=== PATIENT | male | born 1970 | race Two or more races ===

== ENCOUNTER 2025-03-26 13:25 | Emergency (ER) | payer OTHER ==
[~2025-03-26] VITALS: Ht 175.3 cm; Wt 102.0 kg
[2025-03-26 13:46] VITALS: BP 135/92; PULSE 78; RESP 16; TEMP 97.8; O2SAT 97
--- NOTE | 2025-03-26 14:00 | ED.PDOC ---
History of Present Illness HPI Comments This is a 54-year-old male with past medical history of hypertension, CVA with right-sided residual weakness presented to the ED from [facility] via [facility] with a chief complaint of intermittent nose bleeding, once or twice a day for last 1 month prior to this visit. The patient stated that he started having nose bleeding since last 1 month, mostly in the nighttime, stopped by putting pressure over the nose, but this time the bleeding did not stop that prompted this visit. He denies fever, chills, flu-like symptoms, chest pain, shortness of breath, abdominal pain, altered bowel habit, dysuria, hematuria. Chief Complaint: Nose Bleed Time Seen by MD: 13:36 Allergies: Coded Allergies: NO KNOWN ALLERGIES (Unverified , 03/26/25) Information Source: Patient Mode of Arrival: EMS Severity: Mild Timing: Months Duration: Since onset Prehospital treatment: None Past Medical History PAST MEDICAL HISTORY: CVA, HTN Surgical History: Appendectomy Family History Family History: Reviewed,noncontributory to illness Social History Smoker: Cigarettes, Less Than 1 Pack/Day Alcohol: Occasionally Drugs: Marijuana Lives In: Assisted Care Constitutional: denies: chills, diaphoresis, fatigue, fever, malaise, sweats, weakness, others EENTM: reports: nose bleeding; denies: blurred vision, double vision, ear bleeding, ear discharge, ear drainage, ear pain, ear ringing, eye pain, eye redness, hearing loss, mouth pain, mouth swelling, nasal discharge, nose congestion, nose pain, photophobia, tearing, throat pain, throat swelling, voice changes, others Respiratory: denies: cough, hemoptysis, orthopnea, SOB at rest, shortness of breath, SOB with excertion, stridor, wheezing, others Cardiovascular: denies: chest pain, dizzy spells, diaphoresis, Dyspnea on exertion, edema, irregular heart beat, left arm pain, lightheadedness, palpitations, PND, syncope, others Gastrointestinal: denies: abdomen distended, abdominal pain, blood streaked bowels, constipated, diarrhea, dysphagia, difficulty swallowing, hematemesis, melena, nausea, poor appetite, poor fluid intake, rectal bleeding, rectal pain, vomiting, others Neurological: reports: right sided weakness, speech problems; denies: dizziness, fainting, headache, left sided numbness, left sided weakness, numbness, paresthesia, pre-existing deficit, right sided numbness, seizure, tingling, tremors, weakness, others Musculoskeletal: denies: back pain, gout, joint pain, joint swelling, muscle pain, muscle stiffness, neck pain, others Integumetry: denies: bruises, change in color, change in hair/nails, dryness, laceration, lesions, lumps, rash, wounds, others Allergic/Immunocompromised: denies: Difficulty Healing, Frequent Infections, Hives, Itching, others Hematologic/Lymphatic: denies: anemia, blood clots, easy bleeding, easy bruising, swollen glands, others Endocrine: denies: excessive hunger, excessive sweating, excessive thirst, excessive urination, flushing, intolerance to cold, intolerance to heat, unexplained weight gain, unexplained weight loss, others Psychiatric: denies: anxiety, bipolar disorder, depression, hopeless, panic disorder, schizophrenia, sleepless, suicidal, others Physical Exam General Appearance: No Apparent Distress, Normal HEENT: Other (Dry hemostatic crust noted bilaterally in both nasal cavities) Neck: Full Range of Motion, Non-Tender, Normal, Normal Inspection Respiratory: Chest Non-Tender, Lungs Clear, No Accessory Muscle Use, No Respiratory Distress, Normal Breath Sounds Cardiovascular: No Edema, No JVD, No Murmur, No Gallop, Normal Peripheral Pulses, Regular Rate/Rhythm Breast Exam: Deferred Gastrointestinal: No Organomegaly, Non Tender, No Pulsatile Mass, Normal Bowel Sounds, Soft Genitalia: Deferred Pelvic: Deferred Rectal: Deferred Extremities: No calf tenderness, Normal capillary refill, Normal inspection, Normal range of motion, Non-tender, No pedal edema Neurologic: machine folder II-XII nml as Tested, Motor Weakness, Normal Mood, Speech Problem Cerebellar Function: NOT DONE Reflexes: NOT DONE Skin: Dry, Normal Color, Warm Peripheral Pulses: 2+ carotid (R), 2+ carotid (L), 2+ femoral (R), 2+ femoral (L), 2+ dorsalis pedis (R), 2+ dorsalis pedis (L), 2+ Radial (R), 2+ Radial (L), 2+ Brachial (R), 2+ Brachial (L) Lymphatic: NOT DONE Was a procedure done? Was a procedure done?: No Differential Dx Considerations may include: Epistaxis, nose picking, nasal foreign body, viral infection, thrombocytopenia X-Ray, Labs, Meds, VS Vital Signs Date Time Temp Pulse Resp B/P (MAP) Pulse Ox O2 Delivery O2 Flow Rate FiO2 03/26/25 13:46 97.8 78 16 135/92 97 97.8 Lab Test 03/26/25 15:42 Range/Units White Blood Count 5.9 4.4-10.8 10^3/uL Red Blood Count 4.08 L 4.5-5.90 10^6/uL Hemoglobin 12.8 L 13.5-17.5 g/dL Hematocrit 37.3 L 41.0-53.0 % Mean Corpuscular Volume 91.4 80.0-100.0 fL Mean Corpuscular Hemoglobin 31.3 28.0-32.0 pg Mean Corpuscular Hemoglobin Concent 34.2 32.0-36.0 g/dL Red Cell Distribution Width 15.7 H 11.8-14.3 % Platelet Count 216 140-450 10^3/uL Mean Platelet Volume 7.8 6.9-10.8 fL Neutrophils (%) (Auto) 54.2 37.0-80.0 % Lymphocytes (%) (Auto) 37.4 10.0-50.0 % Monocytes (%) (Auto) 7.8 0.0-12.0 % Eosinophils (%) (Auto) 0.4 0.0-7.0 % Basophils (%) (Auto) 0.2 0.0-2.0 % Neutrophils # (Auto) 3.2 1.6-8.6 10 ^3/uL Lymphocytes # (Auto) 2.2 0.4-5.4 10 ^3/uL Monocytes # (Auto) 0.5 0-1.3 10 ^3/uL Eosinophils # (Auto) 0 0-0.8 10 ^3/uL Basophils # (Auto) 0 0-0.2 10 ^3/uL Nucleated Red Blood Cells 0.2 % Prothrombin Time 10.5 9.3-11.8 sec Prothrombin Time INR 0.99 0.9-1.15 Activated Partial Thromboplast Time 28.4 24.5-34.5 SEC X-Ray, Labs, Meds, VS Comment CBC and coagulation studies are unremarkable Time of 1ST Reevaluation: 16:30 Reevaluation 1ST: Unchanged Patient Education/Counseling: Diagnosis, Treatment Family Education/Counseling: No Family Present Comments This is a 54-year-old male presented to the ER from [facility] with a complaint of intermittent nosebleed once or twice a day since last 1 month and resolved spontaneously by putting pressure over the nose. At the ER no active nasal bleeding, dry hemostatic crust present bilaterally CBC and coagulation studies are unremarkable Epistaxis most likely due to nose picking. Advised the patient to avoid nose picking or putting any foreign body in the nose SEPSIS Sepsis Screen Vital Signs Date Time Temp Pulse Resp B/P (MAP) Pulse Ox O2 Delivery O2 Flow Rate FiO2 03/26/25 13:46 97.8 78 16 135/92 97 97.8 Laboratory Tests Test 03/26/25 15:42 White Blood Count 5.9 10^3/uL (4.4-10.8) Departure 1 Departure Time of Disposition: 17:07 Impression: Primary Impression: Epistaxis Disposition: 01 HOME / SELF CARE / HOMELESS Condition: Fair Critical Care Note Critical Care Time?: No Stability Stability form required: JOE Galvin RESIDENT Mar 26, 2025 13:59
[2025-03-26 16:15] LABS: Hematocrit 37.3 % (41.0-53.0); Hemoglobin 12.8 g/dL (13.5-17.5); Mean Corpuscular Hemoglobin 31.3 pg (28.0-32.0); Mean Corpuscular Volume 91.4 fL (80.0-100.0); Nucleated Red Blood Cells % 0.2 %
[2025-03-26 16:34] LABS: INR 0.99 (0.9-1.15); Partial Thromboplastin Time 28.4 SEC (24.5-34.5); Prothrombin Time 10.5 sec (9.3-11.8)
== END 2025-03-26 18:29 | disposition home or self-care (01) ==
LOC: EDBD 13:25 → ER 13:25
DX: R04.0 Epistaxis (principal); I10 Essential (primary) hypertension; F17.210 Nicotine dependence, cigarettes, uncomplicated; Z90.49 Acquired absence of other specified parts of digestive tract
CPT/HCPCS: 36415; 85025; 85610; 85730

== ENCOUNTER 2025-06-18 08:17 | Emergency (ER) | payer OTHER ==
[~2025-06-18] VITALS: Ht 177.8 cm; Wt 118.0 kg
[2025-06-18 08:37] VITALS: TEMP 98.9
[2025-06-18 08:39] VITALS: PULSE 106; RESP 24; O2SAT 95
[2025-06-18 09:50] LABS: Hematocrit 38.1 % (41.0-53.0); Hemoglobin 12.9 g/dL (13.5-17.5); Mean Corpuscular Hemoglobin 30.8 pg (28.0-32.0); Mean Corpuscular Volume 90.7 fL (80.0-100.0); Nucleated Red Blood Cells % 0.0 %
[2025-06-18 09:59] LABS: Chloride 106 mmol/L (98-107); Sodium 140 mmol/L (136-145)
[2025-06-18 10:00] LABS: Anion Gap 9 (5-15); Carbon Dioxide 25 mmol/L (20-31)
[2025-06-18 10:01] LABS: Calcium 8.9 mg/dL (8.7-10.4)
[2025-06-18 10:04] LABS: Potassium 3.3 mmol/L (3.5-5.1)
[2025-06-18 10:06] LABS: BUN/Creatinine Ratio 10.0 (10.0-20.0); Blood Urea Nitrogen 12 mg/dL (9-23)
[2025-06-18 10:07] LABS: Glucose 120 mg/dL (74-106)
--- NOTE | 2025-06-18 10:07 | DVH ---
EXAM: XY CHEST PORTABLE Indication: cp Technique: Single frontal view of the chest was obtained Comparison: None FINDINGS: Lines and Tubes: None Lungs: No focal consolidation. Pleura: No effusion. No pneumothorax. Cardiomediastinal contours: Unremarkable Bones: No acute osseous abnormality. IMPRESSION: No acute cardiopulmonary disease.
[2025-06-18 10:22] LABS: Urine Budding Yeast OCCASIONAL /hpf (None Seen); Urine Protein, UAD 1+ (Negative)
[2025-06-18 10:35] LABS: Benzodiazephine Screen, Urine Neg (NEGATIVE); Cannabinoid Screen, Urine Pos (NEGATIVE)
--- NOTE | 2025-06-18 10:37 | ED.PDOC ---
Psychiatric HPI Comments 54 year old male with PMHx HTN, CVA presents to the ED via EMS with a chief complaint of hallucinations onset today. Per EMS, patient is from [facility], patient smoked marijuana last night. Patient has been experiencing hallucinations since this morning. Patient is a poor historian, states he has been experiencing depression since his mother . No other symptoms or modifying factors present at this time. Chief Complaint: Mental Health Time Seen by MD: 10:30 Reviewed Notes: Medications, Allergies Information Source: Patient, Emergency Med Personnel Mode of Arrival: EMS Severity of Mental Status: Moderate Severity of Symptoms: Moderate Timing: Hours Duration: Since onset Prehospital treatment: None Presents with: Other Ingestion: Drug(s) Ingested Current substance abuse: Other Associated signs and symptoms: Hallucinations Past Medical History PAST MEDICAL HISTORY: CVA, HTN Surgical History: Appendectomy Family History Family History: Reviewed,noncontributory to illness Social History Smoker: Cigarettes, Less Than 1 Pack/Day Alcohol: Occasionally Drugs: Marijuana Lives In: Assisted Care Constitutional: denies: chills, diaphoresis, fatigue, fever, malaise, sweats, weakness, others EENTM: denies: blurred vision, double vision, ear bleeding, ear discharge, ear drainage, ear pain, ear ringing, eye pain, eye redness, hearing loss, mouth pain, mouth swelling, nasal discharge, nose bleeding, nose congestion, nose pain, photophobia, tearing, throat pain, throat swelling, voice changes, others Respiratory: denies: cough, hemoptysis, orthopnea, SOB at rest, shortness of breath, SOB with excertion, stridor, wheezing, others Cardiovascular: denies: chest pain, dizzy spells, diaphoresis, Dyspnea on exertion, edema, irregular heart beat, left arm pain, lightheadedness, palpitations, PND, syncope, others Gastrointestinal: denies: abdomen distended, abdominal pain, blood streaked bowels, constipated, diarrhea, dysphagia, difficulty swallowing, hematemesis, melena, nausea, poor appetite, poor fluid intake, rectal bleeding, rectal pain, vomiting, others Genitourinary: denies: burning, dysuria, flank pain, frequency, hematuria, incontinence, penile discharge, penile sore, pain, testicle pain, testicle swelling, urgency, others Neurological: denies: dizziness, fainting, headache, left sided numbness, left sided weakness, numbness, paresthesia, pre-existing deficit, right sided numbness, right sided weakness, seizure, speech problems, tingling, tremors, weakness, others Musculoskeletal: denies: back pain, gout, joint pain, joint swelling, muscle pain, muscle stiffness, neck pain, others Integumetry: denies: bruises, change in color, change in hair/nails, dryness, laceration, lesions, lumps, rash, wounds, others Allergic/Immunocompromised: denies: Difficulty Healing, Frequent Infections, Hives, Itching, others Hematologic/Lymphatic: denies: anemia, blood clots, easy bleeding, easy bruising, swollen glands, others Endocrine: denies: excessive hunger, excessive sweating, excessive thirst, excessive urination, flushing, intolerance to cold, intolerance to heat, unexplained weight gain, unexplained weight loss, others Psychiatric: reports: others (hallucinations); denies: anxiety, bipolar disorder, depression, hopeless, panic disorder, schizophrenia, sleepless, suicidal All Other Systems: Reviewed and Negative Physical Exam General Appearance: Normal HEENT: Normal ENT Inspection, Pharynx Normal, TMs Normal Neck: Full Range of Motion, Non-Tender, Normal, Normal Inspection Respiratory: Chest Non-Tender, Lungs Clear, No Accessory Muscle Use, No Respiratory Distress, Normal Breath Sounds Cardiovascular: No Edema, No JVD, No Murmur, No Gallop, Normal Peripheral Pulse s, Regular Rate/Rhythm Breast Exam: Deferred Gastrointestinal: No Organomegaly, Non Tender, No Pulsatile Mass, Normal Bowel Sounds, Soft Genitalia: Deferred Pelvic: Deferred Rectal: Deferred Extremities: No calf tenderness, Normal capillary refill, Normal inspection, Normal range of motion, Non-tender, No pedal edema Musculoskeletal : Apperance: Normal Neurologic: Alert, police commissioner II-XII nml as Tested, No Motor Deficits, Normal Affect, Normal Mood, No Sensory Deficits Cerebellar Function: Normal Reflexes: Normal Skin: Dry, Normal Color, Warm Lymphatic: No Adenopathy Was a procedure done? Was a procedure done?: No Psych Differential Dx Intoxication Differential Dx: Hallucinations X-Ray, Labs, Meds, VS Vital Signs Date Time Temp Pulse Resp B/P (MAP) Pulse Ox O2 Delivery O2 Flow Rate FiO2 06/18/25 11:28 95 16 144/95 (111) 98 06/18/25 10:00 102 22 159/107 (124) 97 06/18/25 09:57 22 96 Room Air* 0 21 21 06/18/25 08:39 106 24 95 Room Air* 0 21 06/18/25 08:37 98.9 121 17 161/109 (126) 97 98.9 06/18/25 08:34 68 06/18/25 08:21 98.1 116 24 130/96 94 98.1 Lab Test 06/18/25 11:12 06/18/25 09:51 06/18/25 09:36 Range/Units Troponin I High Sensitivity Pending 46 </=54 ng/L Urine Color Yellow Yellow Urine Clarity Clear Clear Urine pH 6.0 5.0-9.0 Urine Specific [place] 1.031 1.001-1.035 Urine Protein 1+ H Negative Urine Ketones 1+ H Negative Urine Blood Trace H Negative /uL Urine Nitrite Negative Negative Urine Bilirubin Negative Negative Urine Urobilinogen 4 H Negative mg/dL Urine Leukocyte Esterase 1+ Negative /uL Urine RBC 7 0 - 3 /hpf Urine Microscopic WBC 10 H 0-3 /HPF Urine Squamous Epithelial Cells Few <5 /hpf Urine Bacteria None seen None Seen /hpf Urine Mucus Few None Seen Urine Yeast (Budding) Occasional None Seen /hpf Urine Glucose Normal Normal mg/dL Urine Opiates Screen Neg NEGATIVE Urine Fentanyl Screen Neg NEGATIVE Urine Barbiturates Screen Neg NEGATIVE Urine Phencyclidine Screen Neg NEGATIVE Urine Amphetamines Screen Pos NEGATIVE Urine Benzodiazepines Screen Neg NEGATIVE Urine Cocaine Screen Neg NEGATIVE Urine Cannabinoids Screen Pos NEGATIVE White Blood Count 7.0 4.4-10.8 10^3/uL Red Blood Count 4.20 L 4.5-5.90 10^6/uL Hemoglobin 12.9 L 13.5-17.5 g/dL Hematocrit 38.1 L 41.0-53.0 % Mean Corpuscular Volume 90.7 80.0-100.0 fL Mean Corpuscular Hemoglobin 30.8 28.0-32.0 pg Mean Corpuscular Hemoglobin Concent 33.9 32.0-36.0 g/dL Red Cell Distribution Width 15.8 H 11.8-14.3 % Platelet Count 183 140-450 10^3/uL Mean Platelet Volume 7.9 6.9-10.8 fL Neutrophils (%) (Auto) 67.5 37.0-80.0 % Lymphocytes (%) (Auto) 24.0 10.0-50.0 % Monocytes (%) (Auto) 7.9 0.0-12.0 % Eosinophils (%) (Auto) 0.2 0.0-7.0 % Basophils (%) (Auto) 0.4 0.0-2.0 % Neutrophils # (Auto) 4.7 1.6-8.6 10 ^3/uL Lymphocytes # (Auto) 1.7 0.4-5.4 10 ^3/uL Monocytes # (Auto) 0.5 0-1.3 10 ^3/uL Eosinophils # (Auto) 0 0-0.8 10 ^3/uL Basophils # (Auto) 0 0-0.2 10 ^3/uL Nucleated Red Blood Cells 0.0 % Sodium Level 140 136-145 mmol/L Potassium Level 3.3 L 3.5-5.1 mmol/L Chloride Level 106 98-107 mmol/L Carbon Dioxide Level 25 20-31 mmol/L Anion Gap 9 5-15 Blood Urea Nitrogen 12 9-23 mg/dL Creatinine 1.20 0.700-1.30 mg/dL Glomerular Filtration Rate Calc 71 >90 mL/min BUN/Creatinine Ratio 10.0 10.0-20.0 Serum Glucose 120 H 74-106 mg/dL Calcium Level 8.9 8.7-10.4 mg/dL Salicylates Level Pending Acetaminophen Level Pending Plasma/Serum Blood Alcohol < 3.0 <10 mg/dL [place] [id number] Ph: [phone] DIAGNOSTIC IMAGING Diagnostic Imaging Report : [id number] Signed PATIENT: CLEMENT WILL ACCT: [id number] UNIT: [id number] : 1970 LOC: ER ROOM / BED: / AGE / SEX: 54 / M ADM STATUS: REG ER SERVICE [id number] ORDERING PHYSICIAN: LATRICE LOO MD PROCEDURE(s): CXRP - CHEST PORTABLE REASON: cp ORDER NUMBER(s): [id number], ACCESSION NUMBER(s): [id number] EXAM: XY CHEST PORTABLE Indication: cp Technique: Single frontal view of the chest was obtained Comparison: None FINDINGS: Lines and Tubes: None Lungs: No focal consolidation. Pleura: No effusion. No pneumothorax. Cardiomediastinal contours: Unremarkable Bones: No acute osseous abnormality. IMPRESSION: No acute cardiopulmonary disease. ATED BY: DEMIAN HARDEN MD DICTATED DATE/TIME: 06/18/25 1005 SIGNED BY: DEMIAN HARDEN MD SIGNED DATE/TIME: 06/18/25 1005 CC: Time of 1ST Reevaluation: 11:00 Reevaluation 1ST: Unchanged Patient Education/Counseling: Diagnosis, Treatment, Prognosis Family Education/Counseling: No Family Present Departure 1 Departure Time of Disposition: 11:40 (Patient likely with polysubstance abuse. We will discharge patient home with outpatient follow up) Impression: Primary Impression: Polysubstance abuse Disposition: 03 [facility] Condition: Stable Additional Instructions: Do not use drugs. There are resources to help you quit. You can call: 8-225-435-[place] ([phone]) If your symptoms worsen or you have any other concerns please return to the emergency room. Discharged With: Self Critical Care Note Critical Care Time?: No Stability Stability form required: No Heart Score Heart Score: Heart Score Response (Comments) Value History N/A 0 EKG N/A 0 Age N/A 0 Risk Factors N/A 0 Troponin N/A 0 Total 0 I personally scribed for LATRICE LOO MD ([email or web address]) on 06/18/25 at 10:37. Electronically submitted by Kanika Do ([email or web address]). I personally scribed for LATRICE LOO MD ([email or web address]) on 06/18/25 at 10:38. Electronically submitted by Kanika Do ([email or web address]). LATRICE LOO MD Jun 18, 2025 10:37
[2025-06-18 10:47] LABS: Amphetamine Screen, Urine Pos (NEGATIVE); Barbiturate Scree,Urine Neg (NEGATIVE); Cocaine Screen, Urine Neg (NEGATIVE); Opiate Scree,Urine Neg (NEGATIVE); Phencyclidine Screen, Urine Neg (NEGATIVE)
[2025-06-18 11:28] VITALS: BP 144/95; RESP 16; O2SAT 98
[2025-06-18 12:05] VITALS: PULSE 97
[2025-06-18 13:26] LABS: Acetaminophen < 2.0 UG/ML (10.0-20.0); Salicylate < 3.0 mg/dL (-30)
== END 2025-06-18 14:22 ==
LOC: EDBD 08:17 → ER 08:17
DX: F19.10 Other psychoactive substance abuse, uncomplicated (principal); I10 Essential (primary) hypertension; I63.9 Cerebral infarction, unspecified; F17.210 Nicotine dependence, cigarettes, uncomplicated; Z86.73 Personal history of transient ischemic attack (TIA), and cerebral infarction without residual deficits; Z90.49 Acquired absence of other specified parts of digestive tract
CPT/HCPCS: 36415; 71045; 80048; 80307; 80320; 80329; 81001; 84484; 85025

== ENCOUNTER 2025-07-26 11:39 | Inpatient (IN) | payer OTHER ==
[~2025-07-26] VITALS: Ht 175.3 cm; Wt 113.9 kg
--- NOTE | 2025-07-26 11:59 | ED.PDOC ---
SOB-HPI HPI Comments 55y M who presents to the ED via EMS for chief complaint of flu like symptoms. Per EMS, pt is currently [facility] and states he is recovering from recent CVA with noted R sided deficits. EMS was called after has been having flu -like symptoms including cough, congestion, and sore throat for the pas 3 days getting progressively worse since. EMS arrived on scene and noted pt had stable vitals but only BP in the 140's systolic and brought to the ED with no interventions performed. Pt otherwise denies any other symptoms at this time, Chief Complaint: Flu like Time Seen by MD: 11:56 Reviewed notes: Nurses Notes, Medications, Allergies Information Source: Patient, Emergency Med Personnel Mode of Arrival: Ambulatory Brought in by: EMS Severity: Moderate Timing: Days Duration: Since onset Context: At Rest PE Risk Factors: Immobilization History of: Other (cva) Prehospital treatment: None Modifying Factors: Exertion, Laying flat Associated Signs and Symptoms: Cough, Nasal Congestion, Sore Throat If cough with SOB: Non-Productive Past Medical History PAST MEDICAL HISTORY: CVA, High Lipids, HTN, NH Past Medical History (Other): neuropathy, cardiomegaly Surgical History: Appendectomy Family History Family History: Reviewed,noncontributory to illness Social History Smoker: Cigarettes, Less Than 1 Pack/Day Alcohol: Occasionally Drugs: Marijuana Lives In: Assisted Care Constitutional: denies: chills, diaphoresis, fatigue, fever, malaise, sweats, weakness, others EENTM: reports: nose congestion, throat pain; denies: blurred vision, double vision, ear bleeding, ear discharge, ear drainage, ear pain, ear ringing, eye pain, eye redness, hearing loss, mouth pain, mouth swelling, nasal discharge, nose bleeding, nose pain, photophobia, tearing, throat swelling, voice changes, others Respiratory: reports: cough, shortness of breath; denies: hemoptysis, orthopnea, SOB at rest, SOB with excertion, stridor, wheezing, others Cardiovascular: denies: chest pain, dizzy spells, diaphoresis, Dyspnea on exertion, edema, irregular heart beat, left arm pain, lightheadedness, palpitations, PND, syncope, others Gastrointestinal: denies: abdomen distended, abdominal pain, blood streaked bowels, constipated, diarrhea, dysphagia, difficulty swallowing, hematemesis, melena, nausea, poor appetite, poor fluid intake, rectal bleeding, rectal pain, vomiting, others Genitourinary: denies: burning, dysuria, flank pain, frequency, hematuria, incontinence, penile discharge, penile sore, pain, testicle pain, testicle swelling, urgency, others Neurological: denies: dizziness, fainting, headache, left sided numbness, left sided weakness, numbness, paresthesia, pre-existing deficit, right sided numbness, right sided weakness, seizure, speech problems, tingling, tremors, weakness, others Musculoskeletal: denies: back pain, gout, joint pain, joint swelling, muscle pain, muscle stiffness, neck pain, others Integumetry: denies: bruises, change in color, change in hair/nails, dryness, laceration, lesions, lumps, rash, wounds, others Allergic/Immunocompromised: denies: Difficulty Healing, Frequent Infections, Hives, Itching, others Hematologic/Lymphatic: denies: anemia, blood clots, easy bleeding, easy bruising, swollen glands, others Endocrine: denies: excessive hunger, excessive sweating, excessive thirst, excessive urination, flushing, intolerance to cold, intolerance to heat, unexplained weight gain, unexplained weight loss, others Psychiatric: denies: anxiety, bipolar disorder, depression, hopeless, panic disorder, schizophrenia, sleepless, suicidal, others All Other Systems: Reviewed and Negative Physical Exam General Appearance: Moderate Distress, Obese HEENT: Pale Conjuntivae (L), Pale Conjuntivae (R), Pharynx Normal, TMs Normal Neck: Full Range of Motion, Non-Tender, Normal, Normal Inspection Respiratory: Chest Non-Tender, No Accessory Muscle Use, Respiratory Distress, Wheezing Cardiovascular: No Edema, No JVD, No Murmur, No Gallop, Normal Peripheral Pulses, Regular Rate/Rhythm Breast Exam: Deferred Gastrointestinal: No Organomegaly, Non Tender, No Pulsatile Mass, Normal Bowel Sounds, Soft Genitalia: Deferred Pelvic: Deferred Rectal: Deferred Extremities: No calf tenderness, Normal capillary refill, Non-tender, No pedal edema Musculoskeletal : Apperance: Normal Neurologic: Alert, hand cutter II-XII nml as Tested, Motor Weakness (Right-sided weakness), Normal Affect, No Sensory Deficits Cerebellar Function: Normal Reflexes: Normal Skin: Dry, Normal Color, Warm Lymphatic: No Adenopathy Was a procedure done? Was a procedure done?: No Differential Dx Differential Diagnosis: Bronchitis, CHF, Pneumonia, URI Comments influenza A and B, COVID X-Ray, Labs, Meds, VS Vital Signs Date Time Temp Pulse Resp B/P (MAP) Pulse Ox O2 Delivery O2 Flow Rate FiO2 07/26/25 15:50 85 19 145/54 (84) 97 07/26/25 13:50 98.2 89 17 150/97 (114) 95 98.2 07/26/25 13:50 89 17 95 Nasal Cannula* 2 28 07/26/25 13:00 92 20 94 Nasal Cannula* 2 28 07/26/25 13:00 92 20 150/97 (114) 94 07/26/25 12:00 80 07/26/25 11:49 82 07/26/25 11:47 98.9 88 15 149/89 100 98.9 Lab Test 07/26/25 15:32 07/26/25 11:53 07/26/25 11:16 Range/Units Urine Color Light-yellow Yellow Urine Clarity Clear Clear Urine pH 7.0 5.0-9.0 Urine Specific [place] 1.016 1.001-1.035 Urine Protein Negative Negative Urine Ketones Negative Negative Urine Blood Negative Negative /uL Urine Nitrite Negative Negative Urine Bilirubin Negative Negative Urine Urobilinogen Normal Negative mg/dL Urine Leukocyte Esterase Negative Negative /uL Urine RBC <1 0 - 3 /hpf Urine Microscopic WBC 1 0-3 /HPF Urine Squamous Epithelial Cells Few <5 /hpf Urine Bacteria None seen None Seen /hpf Urine Mucus Few None Seen Urine Glucose Normal Normal mg/dL Urine Opiates Screen Neg NEGATIVE Urine Fentanyl Screen Neg NEGATIVE Urine Barbiturates Screen Neg NEGATIVE Urine Phencyclidine Screen Neg NEGATIVE Urine Amphetamines Screen Neg NEGATIVE Urine Benzodiazepines Screen Neg NEGATIVE Urine Cocaine Screen Neg NEGATIVE Urine Cannabinoids Screen Pos NEGATIVE White Blood Count 8.1 4.4-10.8 10^3/uL Red Blood Count 4.39 L 4.5-5.90 10^6/uL Hemoglobin 13.2 L 13.5-17.5 g/dL Hematocrit 40.0 L 41.0-53.0 % Mean Corpuscular Volume 91.1 80.0-100.0 fL Mean Corpuscular Hemoglobin 30.0 28.0-32.0 pg Mean Corpuscular Hemoglobin Concent 33.0 32.0-36.0 g/dL Red Cell Distribution Width 16.0 H 11.8-14.3 % Platelet Count 171 140-450 10^3/uL Mean Platelet Volume 7.9 6.9-10.8 fL Neutrophils (%) (Auto) 56.0 37.0-80.0 % Lymphocytes (%) (Auto) 34.9 10.0-50.0 % Monocytes (%) (Auto) 8.1 0.0-12.0 % Eosinophils (%) (Auto) 0.5 0.0-7.0 % Basophils (%) (Auto) 0.5 0.0-2.0 % Neutrophils # (Auto) 4.6 1.6-8.6 10 ^3/uL Lymphocytes # (Auto) 2.8 0.4-5.4 10 ^3/uL Monocytes # (Auto) 0.7 0-1.3 10 ^3/uL Eosinophils # (Auto) 0 0-0.8 10 ^3/uL Basophils # (Auto) 0 0-0.2 10 ^3/uL Nucleated Red Blood Cells 0.1 % Sodium Level 140 136-145 mmol/L Potassium Level 3.6 3.5-5.1 mmol/L Chloride Level 105 98-107 mmol/L Carbon Dioxide Level 26 20-31 mmol/L Anion Gap 9 5-15 Blood Urea Nitrogen 7 L 9-23 mg/dL Creatinine 1.15 0.700-1.30 mg/dL Glomerular Filtration Rate Calc 74 >90 mL/min BUN/Creatinine Ratio 6.1 L 10.0-20.0 Serum Glucose 93 74-106 mg/dL Calcium Level 8.9 8.7-10.4 mg/dL Plasma/Serum Blood Alcohol < 3.0 <10 mg/dL Influenza Type A Antigen Negative Negative Influenza Type B Antigen Negative Negative SARS-CoV-2 Antigen (Rapid) Negative NEGATIVE The chest x-ray shows: FINDINGS/IMPRESSION: Prominence of the interstitial markings. Unchanged cardiomediastinal silhouette. No pleural effusion or pneumothorax. No acute osseous abnormality. The COVID test and influenza a and influenza B are negative The chemistry panel is within normal limits The CBC is within normal limits The urine tox is positive for marijuana The urine test is negative for infection At this time, the patient is being admitted to the hospitalist. Images Reviewed?: Images reviewed and evaluated by me Time of 1ST Reevaluation: 12:30 Reevaluation 1ST: Unchanged Patient Education/Counseling: Diagnosis, Treatment, Prognosis Family Education/Counseling: No Family Present SEPSIS Sepsis Screen Physician Orders Associate Merchandise Planner (07/26/25 11:44) Pulse Oximetry (07/26/25 11:44) Blood Pressure (07/26/25 11:44) Heplock Iv (07/26/25 11:44) Chest Portable (07/26/25 11:44) Vital Signs Date Time Temp Pulse Resp B/P (MAP) Pulse Ox O2 Delivery O2 Flow Rate FiO2 07/26/25 15:50 85 19 145/54 (84) 97 07/26/25 13:50 98.2 89 17 150/97 (114) 95 98.2 07/26/25 13:50 89 17 95 Nasal Cannula* 2 28 07/26/25 13:00 92 20 94 Nasal Cannula* 2 28 07/26/25 13:00 92 20 150/97 (114) 94 07/26/25 12:00 80 07/26/25 11:49 82 07/26/25 11:47 98.9 88 15 149/89 100 98.9 Laboratory Tests Test 07/26/25 11:53 White Blood Count 8.1 10^3/uL (4.4-10.8) Departure 1 Departure Time of Disposition: 16:22 Impression: Primary Impression: Generalized weakness Additional Impressions: Autonomic dysfunction Respiratory distress Disposition: 09 ADMITTED INPATIENT Admit to: [facility] Condition: Fair Critical Care Note Critical Care Time?: No Stability Stability form required: Yes Unstable for transfer: Telemetry monitoring (Telemetry monitoring required), ED Physician Assesment (Clinical assesment) Heart Score Heart Score: Heart Score Response (Comments) Value History N/A 0 EKG N/A 0 Age N/A 0 Risk Factors N/A 0 Troponin N/A 0 Total 0 I personally scribed for CAMI BARNETT MD ([email or web address]) on 07/26/25 at 11:59. Electronically submitted by Harper Christensen ([email or web address]). CAMI BARNETT MD Jul 26, 2025 11:59
[2025-07-26 12:02] LABS: Hematocrit 40.0 % (41.0-53.0); Hemoglobin 13.2 g/dL (13.5-17.5); Mean Corpuscular Hemoglobin 30.0 pg (28.0-32.0); Mean Corpuscular Volume 91.1 fL (80.0-100.0); Nucleated Red Blood Cells % 0.1 %
[2025-07-26 12:12] LABS: Chloride 105 mmol/L (98-107); Potassium 3.6 mmol/L (3.5-5.1); Sodium 140 mmol/L (136-145)
[2025-07-26 12:13] LABS: Anion Gap 9 (5-15); Carbon Dioxide 26 mmol/L (20-31)
[2025-07-26 12:14] LABS: Calcium 8.9 mg/dL (8.7-10.4)
[2025-07-26 12:18] LABS: Glucose 93 mg/dL (74-106)
[2025-07-26 12:19] LABS: BUN/Creatinine Ratio 6.1 (10.0-20.0); Blood Urea Nitrogen 7 mg/dL (9-23)
[2025-07-26 12:48] LABS: COVID19 ANTIGEN SOFIA FIA NEGATIVE (NEGATIVE)
[2025-07-26 13:00] VITALS: PULSE 92; RESP 20; O2SAT 94
[2025-07-26 13:50] VITALS: PULSE 89; RESP 17; O2SAT 95
--- NOTE | 2025-07-26 15:10 | DVH ---
INDICATION: cough TECHNIQUE: Frontal view of the chest. COMPARISON: XY CHEST PORTABLE on DOS: 06/18/25 FINDINGS/IMPRESSION: Prominence of the interstitial markings. Unchanged cardiomediastinal silhouette. No pleural effusion or pneumothorax. No acute osseous abnormality.
[2025-07-26 15:47] LABS: Urine Protein, UAD Negative (Negative)
--- NOTE | 2025-07-26 15:53 | ECG ---
[facility] Test Date: 2025-07-26 Test Time: 11:45:48 Pat Name: CLEMENT WILL Department: ED Room: [address] [place] [address] Gender: M Lab Associate: KARYN : 1970 Requested By: CAMI BARNETT Order Number: [id number] Reading MD: Chris Joy Measurements Intervals [place] Rate: 82 P: 73 SD: 206 QRS: 47 QRSD: 94 T: 97 QT: 383 QTc: 448 Interpretive Statements Sinus rhythm Borderline prolonged SD interval Low voltage, extremity leads Anteroseptal infarct, old Nonspecific T abnormalities, lateral leads Electronically Signed On 07-26-2025 20:12:38 PST by Chris Joy Please click the below link to view image of tracing.
[2025-07-26 16:13] LABS: Amphetamine Screen, Urine Neg (NEGATIVE); Barbiturate Scree,Urine Neg (NEGATIVE); Benzodiazephine Screen, Urine Neg (NEGATIVE); Cannabinoid Screen, Urine Pos (NEGATIVE); Cocaine Screen, Urine Neg (NEGATIVE); Opiate Scree,Urine Neg (NEGATIVE); Phencyclidine Screen, Urine Neg (NEGATIVE)
--- NOTE | 2025-07-26 17:30 | DVHHP2 ---
History of Present Illness HPI 55y M who presents to the ED via EMS for chief complaint of flu like symptoms. Per EMS, pt is currently at [facility] and states he is recovering from recent CVA with noted R sided deficits. EMS was called after has been having flu -like symptoms including cough, congestion, and sore throat for the pas 3 days getting progressively worse since. EMS arrived on scene and noted pt had stable vitals but only BP in the 140's systolic and brought to the ED with no interventions performed. Pt otherwise denies any other symptoms at this time, Home Meds Reported Medications Cholecalciferol (VITAMIN D3) 2,000 Unit Tab, 5000 UNIT OR DAILY, TAB 07/27/25 Sertraline Hcl (Sertraline Hcl) 25 Mg Tab, 1 TAB PO DAILY, #30 TAB 2 Refills 07/27/25 Hydralazine Hcl (Hydralazine Hcl) 100 Mg Tab, 1 TAB PO TID, #90 TAB 5 Refills 07/27/25 Gabapentin (Gabapentin) 100 Mg Cap, 100 MG PO DAILY, CAP 07/27/25 Clonidine Hydrochloride (Clonidine Hcl) 0.1 Mg Tab, 0.1 MG PO Q6HPRN, TAB 07/27/25 Diphenhydramine Hcl (Banophen) 25 Mg Cap, 25 MG PO, CAP 07/27/25 Baclofen (Baclofen) 20 Mg Tab, 10 MG PO Q6HPRN, TAB 07/27/25 Atorvastatin Calcium (ATORVASTATIN CALCIUM) 40 Mg Tab, 40 MG PO DAILY@DINNER, TAB 07/27/25 Amlodipine Besylate (Amlodipine Besylate) 10 Mg Tab, 1 TAB PO DAILY, #30 TAB 5 Refills 07/27/25 Acetaminophen (Tylenol) 650 Mg Rc, 500 MG MA Q6HP PRN for MODERATE PAIN (4-6 PAIN SCALE), SUPP.RECT 07/27/25 Acetaminophen (Tylenol) 325 Mg Tb, 325 MG PO Q6HPRN PRN for PAIN SCALE 1 THRU 6, TAB 07/27/25 H&P Exam Vital Signs Vital Signs Date Time Temp Pulse Resp B/P (MAP) Pulse Ox O2 Delivery O2 Flow Rate FiO2 07/26/25 16:00 80 07/26/25 15:50 19 145/54 (84) 97 07/26/25 13:50 98.2 98.2 07/26/25 13:50 Nasal Cannula* 2 28 SEPSIS Sepsis Screen Date sepsis recognized/suspect: Jul 26, 2025 Time Sepsis recognized/suspect: 1350 Recent Procedure: No On Antibiotic Therapy: No Respiratory Rate >20: No Heart Rate >90: No Temp<36 C (96.8 F) or >38.3 C: No SBP <90 or MAP <65 mmHG: No New Acute Mental Status Change: No Is the patient on CPAP, BIPAP,: No Physician Orders Patient Coordinator Front Desk (07/26/25 11:44) Pulse Oximetry (07/26/25 11:44) Blood Pressure (07/26/25 11:44) Heplock Iv (07/26/25 11:44) Chest Portable (07/26/25 11:44) Vital Signs Date Time Temp Pulse Resp B/P (MAP) Pulse Ox O2 Delivery O2 Flow Rate FiO2 07/26/25 16:00 80 07/26/25 15:50 85 19 145/54 (84) 97 07/26/25 13:50 98.2 89 17 150/97 (114) 95 98.2 07/26/25 13:50 89 17 95 Nasal Cannula* 2 28 07/26/25 13:00 92 20 94 Nasal Cannula* 2 28 07/26/25 13:00 92 20 150/97 (114) 94 07/26/25 12:00 80 07/26/25 11:49 82 07/26/25 11:47 98.9 88 15 149/89 100 98.9 Laboratory Tests Test 07/26/25 11:53 White Blood Count 8.1 10^3/uL (4.4-10.8) Labs/Xrays Labs Test 07/26/25 15:32 07/26/25 11:53 07/26/25 11:16 Range/Units Urine Color Light-yellow Yellow Urine Clarity Clear Clear Urine pH 7.0 5.0-9.0 Urine Specific [place] 1.016 1.001-1.035 Urine Protein Negative Negative Urine Ketones Negative Negative Urine Blood Negative Negative /uL Urine Nitrite Negative Negative Urine Bilirubin Negative Negative Urine Urobilinogen Normal Negative mg/dL Urine Leukocyte Esterase Negative Negative /uL Urine RBC <1 0 - 3 /hpf Urine Microscopic WBC 1 0-3 /HPF Urine Squamous Epithelial Cells Few <5 /hpf Urine Bacteria None seen None Seen /hpf Urine Mucus Few None Seen Urine Glucose Normal Normal mg/dL Urine Opiates Screen Neg NEGATIVE Urine Fentanyl Screen Neg NEGATIVE Urine Barbiturates Screen Neg NEGATIVE Urine Phencyclidine Screen Neg NEGATIVE Urine Amphetamines Screen Neg NEGATIVE Urine Benzodiazepines Screen Neg NEGATIVE Urine Cocaine Screen Neg NEGATIVE Urine Cannabinoids Screen Pos NEGATIVE White Blood Count 8.1 4.4-10.8 10^3/uL Red Blood Count 4.39 L 4.5-5.90 10^6/uL Hemoglobin 13.2 L 13.5-17.5 g/dL Hematocrit 40.0 L 41.0-53.0 % Mean Corpuscular Volume 91.1 80.0-100.0 fL Mean Corpuscular Hemoglobin 30.0 28.0-32.0 pg Mean Corpuscular Hemoglobin Concent 33.0 32.0-36.0 g/dL Red Cell Distribution Width 16.0 H 11.8-14.3 % Platelet Count 171 140-450 10^3/uL Mean Platelet Volume 7.9 6.9-10.8 fL Neutrophils (%) (Auto) 56.0 37.0-80.0 % Lymphocytes (%) (Auto) 34.9 10.0-50.0 % Monocytes (%) (Auto) 8.1 0.0-12.0 % Eosinophils (%) (Auto) 0.5 0.0-7.0 % Basophils (%) (Auto) 0.5 0.0-2.0 % Neutrophils # (Auto) 4.6 1.6-8.6 10 ^3/uL Lymphocytes # (Auto) 2.8 0.4-5.4 10 ^3/uL Monocytes # (Auto) 0.7 0-1.3 10 ^3/uL Eosinophils # (Auto) 0 0-0.8 10 ^3/uL Basophils # (Auto) 0 0-0.2 10 ^3/uL Nucleated Red Blood Cells 0.1 % Sodium Level 140 136-145 mmol/L Potassium Level 3.6 3.5-5.1 mmol/L Chloride Level 105 98-107 mmol/L Carbon Dioxide Level 26 20-31 mmol/L Anion Gap 9 5-15 Blood Urea Nitrogen 7 L 9-23 mg/dL Creatinine 1.15 0.700-1.30 mg/dL Glomerular Filtration Rate Calc 74 >90 mL/min BUN/Creatinine Ratio 6.1 L 10.0-20.0 Serum Glucose 93 74-106 mg/dL Calcium Level 8.9 8.7-10.4 mg/dL Plasma/Serum Blood Alcohol < 3.0 <10 mg/dL Influenza Type A Antigen Negative Negative Influenza Type B Antigen Negative Negative SARS-CoV-2 Antigen (Rapid) Negative NEGATIVE Assessment/Plan Primary Diagnosis Generalized weakness Autonomic dysfunction acute hypoxic Respiratory distress copd exacerbation admitted tx for copd exacerbation Plan discussed with: Patient NOEMI BROWNLEE DO Jul 26, 2025 17:30
[2025-07-26] MEDS ORDERED: NITROGLYCERIN 0.4 MG SL TAB SL PRN (17:45)
[2025-07-26] MEDS ORDERED: ACETAMINOPHEN 325 MG TAB PO PRN (17:45)
[2025-07-26] MEDS ORDERED: HYDROcodone-ACET 5/325MG TAB PO PRN (17:45)
[2025-07-26] MEDS ORDERED: ONDANSETRON HCL 4 MG/2 ML VIAL IV PRN (17:45)
[2025-07-26] MEDS ORDERED: MORPHINE SULFATE INJ 2 MG/ml SYRG IV PRN ×2 (17:45)
[2025-07-26 22:07] VITALS: BP 136/91; PULSE 91; RESP 18; TEMP 98.4; O2SAT 96
[2025-07-26] MEDS: guaiFENesin-DM 100/10mg/5ml SYR PO PRN (22:17)
[2025-07-26 22:27] VITALS: BP 136/91; PULSE 91; RESP 18; TEMP 98.4; O2SAT 96
[2025-07-27] MEDS ORDERED: ACET-1079 PO (00:21)
[2025-07-27] MEDS ORDERED: ACE650RS PR (00:22)
[2025-07-27] MEDS ORDERED: AMLO1TAB23 PO (00:23)
[2025-07-27] MEDS ORDERED: ATOR40TA52 PO (00:24)
[2025-07-27] MEDS ORDERED: BACL20TA PO (00:28)
[2025-07-27] MEDS ORDERED: DIPH-751 PO (00:29)
[2025-07-27] MEDS ORDERED: CLON0.1T PO (00:30)
[2025-07-27] MEDS ORDERED: GABA-1308 PO (00:30)
[2025-07-27] MEDS ORDERED: HYDR100T10 PO (00:31)
[2025-07-27] MEDS ORDERED: SERT25TA28 PO (00:32)
[2025-07-27] MEDS ORDERED: CHOL20007 OR (00:34)
[2025-07-27 01:00] VITALS: BP 139/96; PULSE 88; RESP 20; TEMP 98.1; O2SAT 93
[2025-07-27 05:00] VITALS: BP 130/85; PULSE 88; RESP 20; TEMP 98.1; O2SAT 94
[2025-07-27 06:46] LABS: Hematocrit 37.7 % (41.0-53.0); Hemoglobin 12.7 g/dL (13.5-17.5); Mean Corpuscular Hemoglobin 30.4 pg (28.0-32.0); Mean Corpuscular Volume 90.3 fL (80.0-100.0); Nucleated Red Blood Cells % 0.0 %
[2025-07-27 07:07] LABS: Alanine Aminotransferase 18 U/L (7-40); Albumin 3.7 g/dL (3.2-4.8); Alkaline Phosphatase 92 U/L (46-116); Anion Gap 7 (5-15); BUN/Creatinine Ratio 6.5 (10.0-20.0); Bilirubin, Total 0.5 mg/dL (0.2-1.0); Carbon Dioxide 28 mmol/L (20-31); Chloride 104 mmol/L (98-107); Glucose 94 mg/dL (74-106); Potassium 3.6 mmol/L (3.5-5.1); Sodium 139 mmol/L (136-145); Total Protein 8.1 g/dL (5.7-8.2)
[2025-07-27 07:12] LABS: Blood Urea Nitrogen 7 mg/dL (9-23); Calcium 8.6 mg/dL (8.7-10.4)
[2025-07-27 09:00] VITALS: BP 139/94; PULSE 75; RESP 16; TEMP 98.3; O2SAT 94
[2025-07-27] MEDS: ENOXAPARIN SOD 40 MG/0.4 ML SYRINGE SC SCH (10:34)
[2025-07-27 21:00] VITALS: BP 135/93; PULSE 74; RESP 18; TEMP 97.5; O2SAT 95
[2025-07-28] VITALS (7 sets, daily range): BP systolic 114–147; BP diastolic 61–100; PULSE 69–88; RESP 17–20; TEMP 97–98.1; O2SAT 95–97
[2025-07-29] VITALS (7 sets, daily range): BP systolic 113–144; BP diastolic 68–98; PULSE 61–77; RESP 18–20; TEMP 97.6–98.6; O2SAT 95–97
--- NOTE | 2025-07-29 16:22 | DVHPN2 ---
Progress Note Date Seen: Jul 27, 2025 Medical Necessity Reason Pt with a Central, PICC or Fol: No Subjective Review of Systems: HEENT:Normal, CVS:Normal, RESPIRATORY:Normal Objective vital signs Vital Sign Date Time Temp Pulse Resp B/P (MAP) Pulse Ox O2 Delivery O2 Flow Rate FiO2 07/29/25 13:00 98.5 61 20 113/68 (83) 95 98.5 07/29/25 08:00 Room Air* 0 21 Total Intake and Output 07/28/25 07/28/25 07/29/25 15:00 23:00 07:00 Intake Total 500 ml 480 ml Output Total 1250 ml Balance 500 ml -770 ml medications Current Medications Medications Dose Ordered Sig/Shashi Route Start Time Stop Time Status Last Admin Dose Admin Acetaminophen/ Hydrocodone Bitart 1 tab Q4HP PRN PO 07/26/25 17:45 Ondansetron HCl 4 mg Q4HP PRN IV 07/26/25 17:45 Enoxaparin Sodium 40 mg DAILY SC 07/27/25 10:00 07/29/25 10:09 40 MG Acetaminophen 650 mg Q6HP PRN PO 07/26/25 17:45 Morphine Sulfate 2 mg Q4HPRN PRN IV 07/26/25 17:45 Nitroglycerin 0.4 mg Q5MINP PRN SL 07/26/25 17:45 Morphine Sulfate 2 mg Q30M PRN IV 07/26/25 17:45 Guaifenesin/ Dextromethorphan 10 ml Q6HPRN PRN PO 07/26/25 22:00 07/27/25 20:54 10 ML Examination: GENERAL:Normal, HEENT:Normal, NECK:Normal, LUNGS:Normal laboratory and microbiology Laboratory Tests 07/27/25 05:56 Test 07/27/25 05:56 Range/Units Serum Glucose 94 74-106 mg/dL Microbiology Date/Time Source Procedure Growth Status 07/26/25 23:57 Nose MRSA Screen - Final Complete Problem List/Assessment/Plan Problem List/Assessment/Plan Generalized weakness Autonomic dysfunction acute hypoxic Respiratory distress copd exacerbation admitted tx for copd exacerbation Plan discussed with: Patient NOEMI BROWNLEE Jul 29, 2025 16:22
--- NOTE | 2025-07-29 21:38 | DVHPN2 ---
Progress Note Date Seen: Jul 28, 2025 Medical Necessity Reason Pt with a Central, PICC or Fol: No Objective vital signs Vital Sign Date Time Temp Pulse Resp B/P (MAP) Pulse Ox O2 Delivery O2 Flow Rate FiO2 07/29/25 17:00 98.6 75 20 113/82 (92) 96 98.6 07/29/25 08:00 Room Air* 0 21 Total Intake and Output 07/28/25 07/28/25 07/29/25 15:00 23:00 07:00 Intake Total 500 ml 480 ml Output Total 1250 ml Balance 500 ml -770 ml medications Current Medications Medications Dose Ordered Sig/Shashi Route Start Time Stop Time Status Last Admin Dose Admin Acetaminophen/ Hydrocodone Bitart 1 tab Q4HP PRN PO 07/26/25 17:45 Ondansetron HCl 4 mg Q4HP PRN IV 07/26/25 17:45 Enoxaparin Sodium 40 mg DAILY SC 07/27/25 10:00 07/29/25 10:09 40 MG Acetaminophen 650 mg Q6HP PRN PO 07/26/25 17:45 Morphine Sulfate 2 mg Q4HPRN PRN IV 07/26/25 17:45 Nitroglycerin 0.4 mg Q5MINP PRN SL 07/26/25 17:45 Morphine Sulfate 2 mg Q30M PRN IV 07/26/25 17:45 Guaifenesin/ Dextromethorphan 10 ml Q6HPRN PRN PO 07/26/25 22:00 07/27/25 20:54 10 ML laboratory and microbiology Laboratory Tests 07/27/25 05:56 Test 07/27/25 05:56 Range/Units Serum Glucose 94 74-106 mg/dL Microbiology Date/Time Source Procedure Growth Status 07/26/25 23:57 Nose MRSA Screen - Final Complete Labs and/or images reviewed: Labs reviewed by me, Image(s) reviewed by me Problem List/Assessment/Plan Problem List/Assessment/Plan Generalized weakness Autonomic dysfunction acute hypoxic Respiratory distress copd exacerbation admitted tx for copd exacerbation improving gradually possible d/c in 24 hours Plan discussed with: Patient My Orders My Orders Orders - NOEMI BROWNLEE DO Procedure Category Date Status Time Discharge DISCHARGE 07/29/25 Transmitted 16:23 NOEMI BROWNLEE DO Jul 29, 2025 21:38
--- NOTE | 2025-07-29 21:39 | DVHDS2 ---
Discharge Summary Date of Admission Jul 26, 2025 at 17:31 Date of Discharge: Jul 29, 2025 Labs/Diagnostic Data: Laboratory Results Test 07/27/25 05:56 07/26/25 15:32 07/26/25 11:53 07/26/25 11:16 White Blood Count 4.9 10^3/uL (4.4-10.8) Red Blood Count 4.17 10^6/uL (4.5-5.90) Hemoglobin 12.7 g/dL (13.5-17.5) Hematocrit 37.7 % (41.0-53.0) Mean Corpuscular Volume 90.3 fL (80.0-100.0) Mean Corpuscular Hemoglobin 30.4 pg (28.0-32.0) Mean Corpuscular Hemoglobin Concent 33.7 g/dL (32.0-36.0) Red Cell Distribution Width 16.1 % (11.8-14.3) Platelet Count 155 10^3/uL (140-450) Mean Platelet Volume 8.1 fL (6.9-10.8) Neutrophils (%) (Auto) 59.7 % (37.0-80.0) Lymphocytes (%) (Auto) 29.3 % (10.0-50.0) Monocytes (%) (Auto) 10.3 % (0.0-12.0) Eosinophils (%) (Auto) 0.4 % (0.0-7.0) Basophils (%) (Auto) 0.3 % (0.0-2.0) Neutrophils # (Auto) 2.9 10 ^3/uL (1.6-8.6) Lymphocytes # (Auto) 1.4 10 ^3/uL (0.4-5.4) Monocytes # (Auto) 0.5 10 ^3/uL (0-1.3) Eosinophils # (Auto) 0 10 ^3/uL (0-0.8) Basophils # (Auto) 0 10 ^3/uL (0-0.2) Nucleated Red Blood Cells 0.0 % Sodium Level 139 mmol/L (136-145) Potassium Level 3.6 mmol/L (3.5-5.1) Chloride Level 104 mmol/L (98-107) Carbon Dioxide Level 28 mmol/L (20-31) Anion Gap 7 (5-15) Blood Urea Nitrogen 7 mg/dL (9-23) Creatinine 1.07 mg/dL (0.700-1.30) Glomerular Filtration Rate Calc 81 mL/min (>90) BUN/Creatinine Ratio 6.5 (10.0-20.0) Serum Glucose 94 mg/dL (74-106) Calcium Level 8.6 mg/dL (8.7-10.4) Total Bilirubin 0.5 mg/dL (0.2-1.0) Aspartate Amino Transferase (AST) 13 U/L (13-40) Alanine Aminotransferase (ALT) 18 U/L (7-40) Alkaline Phosphatase 92 U/L (46-116) Total Protein 8.1 g/dL (5.7-8.2) Albumin 3.7 g/dL (3.2-4.8) Urine Color Light-yellow (Yellow) Urine Clarity Clear (Clear) Urine pH 7.0 (5.0-9.0) Urine Specific [place] 1.016 (1.001-1.035) Urine Protein Negative (Negative) Urine Ketones Negative (Negative) Urine Blood Negative /uL (Negative) Urine Nitrite Negative (Negative) Urine Bilirubin Negative (Negative) Urine Urobilinogen Normal mg/dL (Negative) Urine Leukocyte Esterase Negative /uL (Negative) Urine RBC <1 /hpf (0 - 3) Urine Microscopic WBC 1 /HPF (0-3) Urine Squamous Epithelial Cells Few /hpf (<5) Urine Bacteria None seen /hpf (None Seen) Urine Mucus Few (None Seen) Urine Glucose Normal mg/dL (Normal) Urine Opiates Screen Neg (NEGATIVE) Urine Fentanyl Screen Neg (NEGATIVE) Urine Barbiturates Screen Neg (NEGATIVE) Urine Phencyclidine Screen Neg (NEGATIVE) Urine Amphetamines Screen Neg (NEGATIVE) Urine Benzodiazepines Screen Neg (NEGATIVE) Urine Cocaine Screen Neg (NEGATIVE) Urine Cannabinoids Screen Pos (NEGATIVE) Plasma/Serum Blood Alcohol < 3.0 mg/dL (<10) Influenza Type A Antigen Negative (Negative) Influenza Type B Antigen Negative (Negative) SARS-CoV-2 Antigen (Rapid) Negative (NEGATIVE) Other Laboratory Tests 07/27/25 05:56 Brief Hx & Hospital Course: Generalized weakness Autonomic dysfunction acute hypoxic Respiratory distress dyspnea copd exacerbation admitted tx for copd exacerbation discharged to home Condition at Discharge: Good Final Diagnosis/Problems List copd exacerbation Discharge Disposition: Home Discharge Instruct/Medications Diet: Cardiac 2g Na,low cholest Activity: No Restrictions, As Tolerated Scheduled Amlodipine Besylate (Amlodipine Besylate), 1 TAB PO DAILY, (Reported) Atorvastatin Calcium (Atorvastatin Calcium), 40 MG PO DAILY@DINNER, (Reported) Baclofen (Baclofen), 10 MG PO Q6HPRN, (Reported) Cholecalciferol (Vitamin D3), 5,000 UNIT OR DAILY, (Reported) Clonidine Hydrochloride (Clonidine Hcl), 0.1 MG PO Q6HPRN, (Reported) Gabapentin (Gabapentin), 100 MG PO DAILY, (Reported) Hydralazine Hcl (Hydralazine Hcl), 1 TAB PO TID, (Reported) Sertraline Hcl (Sertraline Hcl), 1 TAB PO DAILY, (Reported) Scheduled PRN Acetaminophen (Tylenol), 325 MG PO Q6HPRN PRN for PAIN SCALE 1 THRU 6, (Reported) Acetaminophen (Tylenol), 500 MG AK Q6HP PRN for MODERATE PAIN (4-6 PAIN SCALE), (Reported) Miscellaneous Medications Diphenhydramine Hcl (Banophen), 25 MG PO, (Reported) Discharge Statement: "Patient was advised to return to the ER or call 911 if any headaches, dizziness, shortness of breath, chest pain, abdominal pain, bleeding, fevers, or worsening of medical condition. Patient was counseled about treatment plan, medications, possible side effects, patientverbalized understanding. All questions were answered to the best of my ability. This discharge took greater then 30 minutes in planning, reviewing documentation, counseling the patient, and discussing with other team members." ASSESSMENT ASSESSMENT Assessment NOEMI BROWNLEE DO Jul 29, 2025 21:39
== END 2025-07-29 21:10 | disposition home or self-care (01) | DRG 140 ==
LOC: EDBD 11:39 → ER 11:39 → OVERFLOW 17:31 → WEST WING 21:01
PROVIDERS: ADMIT Internal Medicine; ATTEND Internal Medicine
DX: J44.1 Chronic obstructive pulmonary disease with (acute) exacerbation (principal); G90.89 Other disorders of autonomic nervous system; I10 Essential (primary) hypertension; F17.210 Nicotine dependence, cigarettes, uncomplicated; Z20.822 Contact with and (suspected) exposure to COVID-19; G62.9 Polyneuropathy, unspecified; Z86.73 Personal history of transient ischemic attack (TIA), and cerebral infarction without residual deficits; Z90.49 Acquired absence of other specified parts of digestive tract; R06.03 Acute respiratory distress
CPT/HCPCS: 36415; 71045; 80048; 80053; 80307; 80320; 81001; 85025; 87081; 87426; 87804; 93005; G0378